=== PATIENT | female | born 2000 | race Caucasian/White ===

== ENCOUNTER 2023-12-16 07:38 | Outpatient (AMB) | payer OTHER, SELFPAY ==
--- NOTE | 2023-12-16 07:41 | A.OFFPC_ITS ---
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 Intake Note: Pt is here today as a New Patient requesting a PE Is last menstrual period known: Yes Last menstrual period: 11/27/23 Allergies No Known Allergies Allergy (Verified 12/16/23 07:44) Medication List - Last Reconciled 12/16/23 by Lynnette Hickman MD No Known Home Meds Tobacco use date assessed: 12/28/23 Dental Screening Dental Screen Date: 12/16/23 Did you have a dental visit in the last 12 months?: Yes Did you have a dental problem in the last 6 months where you did not have access to dental care?: Yes Was dental information given to patient?: 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 PFSH Family History (Updated 12/16/23 @ 08:19 by Lynnette Hickman MD) Maternal Aunt Breast CA, Onset Age: 50 Social History Housing: House Patient Tobacco Use Status: Never used Tobacco e-Cigarette/Vaping Use: Never Used service: No Current occupational status: employed Cognitive needs: No Hearing needs: No Vision needs: Yes Female Reproductive History Menstrual Date of last menstrual period: 11/27/23 Review of Systems Const All systems reviewed & are unremarkable except as noted in HPI and below Reports no additional complaints Eyes Reports no additional complaints ENT Reports no additional complaints Card Reports no additional complaints Resp Reports no additional complaints GI Reports no additional complaints Reports no additional complaints Physical exam (Primary Care) Vital Signs: Last Vital Signs Pulse 81 12/16/23 07:44 BP 100/60 12/16/23 07:44 Pulse Ox 100 12/16/23 07:44 Oxygen Delivery Method Room Air 12/16/23 07:44 BMI result Body Mass Index 22.3 Tobacco/Smoking Status: Tobacco use Status Tobacco use date assessed 12/28/23 12/16/23 07:50 Patient Tobacco Use Status Never used Tobacco 12/16/23 07:50 e-Cigarette/Vaping Use Never Used 12/16/23 07:50 Const General: no acute distress HENMT Head: Yes normal to inspection Ears: hearing grossly normal bilaterally Mouth: Normal oral and palatal mucosa present Throat: Yes posterior oropharynx normal Eyes Pupils: Equal, round and reactive pupils present Neck Neck: Yes no lymphadenopathy and Yes supple Chest Other: slight asymetry in L lower sternocostal joints Resp Effort & Inspection: normal respiratory effort Auscultation: clear to auscultation bilaterally Cardio Rhythm: regular rhythm Heart sounds: S1 normal heart sound present and S2 normal heart sound present GI Inspection: Yes normal to inspection Palpation (GI): Soft to palpation Percussion: Yes normal to percussion Auscultation: normal bowel sounds Neuro Cranial nerves: Yes Equal, round and reactive pupils present Assessment and Plan Assessment & Plan (1) Annual physical exam: Code(s): Z00.00 - Encounter for general adult medical examination without abnormal findings Plan: Well-balanced diet regular physical activity discussed with the patient she declined pelvic exam never been sexually active and blood work. Patient will return for rib x-rays to evaluate for asymmetry in left lower sternocostal joints Orders: Orders XR ribs LT min 3V w CXR1V Today S23.29XA - Dislocation of other parts of thorax, initial encounter Coding Level of Care Code New Pt Prev Care 18-39yr(76442 Diagnoses Annual physical exam Z00.00
[2023-12-16 07:44] VITALS: BP 100/60; PULSE 81; O2SAT 100; BMI 22.3
== END 2023-12-16 08:22 | disposition home or self-care (01) ==
PROVIDERS: PCP Internal Medicine; Visit Provider Internal Medicine
DX: Z00.00 Encounter for general adult medical examination without abnormal findings (principal)

== ENCOUNTER → 2023-12-16 07:38 | Outpatient (BNVA) | payer OTHER, SELFPAY | PROVIDERS: PCP Internal Medicine; Visit Provider Internal Medicine | DX: Z00.00 Encounter for general adult medical examination without abnormal findings (principal) ==

== ENCOUNTER 2024-12-19 08:26 | Outpatient (AMB) | payer OTHER, SELFPAY ==
[2024-12-19 08:31] VITALS: BP 108/66; PULSE 83; RESP 18; TEMP 36.9; O2SAT 98; BMI 21.5
--- NOTE | 2024-12-19 08:31 | MHC.PC.OV ---
Vital Signs 12/19/24 08:31 Height 5 ft 4 in Weight 125 lb BMI 21.5 BP 108/66 Blood Pressure Location Lt brachial Position Sitting Respiration 18 Pulse 83 Pulse Source Pulse Oximeter Temp 98.4 F Temp Source Oral Pulse Oximetry (%) 98 Oxygen Delivery Method Room Air Intake Visit Reasons: Annual PE Intake Note: Pt is here today for PE. Allergies No Known Allergies Allergy (Verified 12/19/24 08:33) Tobacco use date assessed: 12/19/24 Dental Screening Dental Screen Date: 12/19/24 Did you have a dental visit in the last 12 months?: Yes Did you have a dental problem in the last 6 months where you did not have access to dental care?: No Was dental information given to patient?: Patient has dentist HPI Annual PE HPI Details Patient presents for physical PFSH Medical History (Updated 12/19/24 @ 20:17 by Lynnette Hickman MD) Annual physical exam Surgical History (Updated 12/19/24 @ 08:35 by MALLIKA Jacques) No pertinent past surgical history Family History Maternal Aunt Breast CA, Onset Age: 50 Social History Housing: House Patient Tobacco Use Status: Never used Tobacco e-Cigarette/Vaping Use: Never Used service: No Current occupational status: employed Cognitive needs: No Hearing needs: No Vision needs: Yes Questionnaire PHQ-9 Over the last 2 weeks, how often have you been bothered by any of the following problems? 1. Little interest or pleasure in doing things: not at all 2. Feeling down, depressed, or hopeless: not at all 3. Trouble falling or staying asleep, or sleeping too much: not at all 4. Feeling tired or having little energy: several days 5. Poor appetite or overeating: several days 6. Feeling bad about yourself - or that you are a failure or have let yourself or your family down: not at all 7. Trouble concentrating on things, such as reading the newspaper or watching television: not at all 8. Moving or speaking so slowly that other people could have noticed. Or the opposite - being so fidgety or restless that you have been moving around a lot more than usual: not at all 9. Thoughts that you would be better off or of hurting yourself in some way: not at all Total score: 2 Depression Screening Interpretation: Negative Depression Screening Done: Yes 61042 - PHQ-9 Billing: Yes Source: Developed by Drs. Jeffery Franco, Melvi Kim, Arnoldo Lang and colleagues, with an educational candi from [employer]. Thrive Questionnaire Date Thrive assessed: 12/19/24 I am a: Patient What is your living situation today?: I have a steady place to live Within the past 12 months, did the food you bought not last and you didn't have the money to get more?: Never true Within the past 12 months, did you worry whether your food would run out before you got money to buy more?: Never true Do you have trouble paying for medicines?: No Do you have trouble getting transportation to medical appointments?: No Do you have trouble paying your heating and electricity bill?: No Do you have trouble taking care of your child, family member or friend?: No Do you have trouble with day-to-day activities such as bathing, preparing meals, shopping, managing finances, etc.?: No Are you currently unemployed and looking for a job?: No Are you interested in more education?: Yes Please select the resources that you would like help with: None Currently or been in a relationship where the following occur: Controlled Emotionally THRIVE Score: 1 AUDIT C Alcohol Use Questionnaire (AUDIT-C) 1. How often do you have a drink containing alcohol?: Never 3. How often do you have six or more drinks on one occasion?: Never Total Score: 0 ANNEL-7 AMB Questionnaire ANNEL-7 Date ANNEL - 7 assessed: 12/19/24 Feeling nervous, anxious, or on edge: 1 = Several days Not being able to stop or control worryin = Several days Worrying too much about different things: 1 = Several days Trouble relaxin = Several days Being so restless that it is hard to sit still: 0 = Not at all Becoming easily annoyed or irritable: 1 = Several days Feeling afraid as if something awful might happen: 0 = Not at all Total ANNEL-7 score (0-4 normal; 5-9 mild; 10-14 moderate; 15-21 severe): 5 Source: Developed by Drs. Jeffery Franco, Melvi Kim, Arnoldo Lang and colleagues, with an educational candi from [employer]. ANNEL-7 Assessment Billing ANNEL-7 Assessment Tool: ANNEL-7 Assessment 84389 Review of Systems Const All systems reviewed & are unremarkable except as noted in HPI and below Eyes Reports no additional complaints ENT Reports no additional complaints Card Reports no additional complaints Resp Reports no additional complaints GI Reports no additional complaints Reports no additional complaints Musc Reports no additional complaints Physical exam (Primary Care) Vital Signs: Last Vital Signs Temp 98.4 F 12/19/24 08:31 Pulse 83 12/19/24 08:31 Resp 18 12/19/24 08:31 BP 108/66 12/19/24 08:31 Pulse Ox 98 12/19/24 08:31 Oxygen Delivery Method Room Air 12/19/24 08:31 BMI result Body Mass Index 21.5 Tobacco/Smoking Status: Tobacco use Status Tobacco use date assessed 12/19/24 12/19/24 08:37 Patient Tobacco Use Status Never used Tobacco 12/19/24 08:37 e-Cigarette/Vaping Use Never Used 12/19/24 08:31 PHQ-9: PHQ-9 Score PHQ-9: Total score 2 12/19/24 08:37 Depression Screening Interpretation: Negative Thrive Assessment: Date of Thrive Assessment Date Thrive assessed 12/19/24 12/19/24 08:37 Currently or been in a relationship where the following occur: Controlled Emotionally Const General: no acute distress HENMT Head: Yes normal to inspection Face and sinus: Yes normal facial exam Mouth: Normal oral and palatal mucosa present Eyes General: appearance normal, both eyes and all related structures Neck Neck: Yes no lymphadenopathy and Yes supple Resp Effort & Inspection: normal respiratory effort Auscultation: clear to auscultation bilaterally Cardio Rhythm: regular rhythm Heart sounds: S1 normal heart sound present and S2 normal heart sound present GI Inspection: Yes normal to inspection Palpation (GI): Soft to palpation Percussion: Yes normal to percussion Auscultation: normal bowel sounds Coding Level of Care Code Est Pt Prev Care 18-39y(65320) Diagnoses Rib pain on left side R07.81 Annual physical exam Z00.00 Additional Codes ANNEL-7 Assessment Billing - ANNLE-7 Assessment Tool: ANNEL-7 Assessment 76327 ([id number]) PHQ-9 - 16423 - PHQ-9 Billing: Yes ([id number]) Assessment & Plan Assessment & Plan (1) Rib pain on left side: Code(s): R07.81 - Pleurodynia Category: Medical Plan: Chronic left-sided rib pain x-ray will be obtained (2) Annual physical exam: Code(s): Z. - Encounter for general adult medical examination without abnormal findings Category: Medical Plan: Well-balanced diet regular physical activity discussed with the patient she will return for Blood work Orders: Orders XR ribs LT 2V Today R07.81 - Pleurodynia Complete Blood Count Auto Diff Today Z00.00 - Encounter for general adult medical examination without abnormal findings Lipid Panel Today Z00.00 - Encounter for general adult medical examination without abnormal findings TSH reflex Free T4 Today Z00.00 - Encounter for general adult medical examination without abnormal findings Comprehensive [place]. Panel Fast Today Z00.00 - Encounter for general adult medical examination without abnormal findings UA CC w/rflx Micro + Cult Today Z00.00 - Encounter for general adult medical examination without abnormal findings Vitamin D 25-OH Total Today Z00.00 - Encounter for general adult medical examination without abnormal findings
--- OUTSIDE RECORDS SUMMARY | 2024-12-19 09:19 | XMS_ITS | Encounter Summary ---
Author Organization [facility] Address [address] [place] [address] Phone Care Team Providers Care Ice Resurfacing Machine Operators Name Role Phone Jolie Rodriguez VULCANIZER Primary Care Provider U mitchel Encounter Details Date Type Department Care Team (Late st Contact Info) Description 08/14/2017 Conversion Encounter [facility] [address] [address] Social History Tobacco Use Types Packs/Day Years Used Date Smoking Tobacco: Never Assessed Comments Unknown Sex and Gender Information Value Date Recorded Sex Assigned at Not on file Legal Sex Female 6:14 PM EDT Gender Identity Not on file Sexual Orientation Not on file documented as of this encounter Plan of Treatment Not on file documented as of this encounter Visit Diagnoses Not on filedocumented in this encounter Care Teams Ice Resurfacing Machine Operators Relationship Specialty Start Date End Date Jolie Rodriguez NP PCP - General 10/19/18 documented as of this encounter
--- OUTSIDE RECORDS SUMMARY | 2024-12-19 09:19 | XMS_ITS ---
Author Name [facility] Organization Unknown Care Team Organization Name Specialty Phone Email Start Date End Da te [facility] Diana Keith Primary Care 09/30/202211/13
--- OUTSIDE RECORDS SUMMARY | 2024-12-19 09:20 | XMS_ITS | Clinical Summary ---
Author Organization [facility] Address [address] [place] [id number] Phone Care Team Providers Care Program Aide Group Work Name Role Phone Jolie Rodriguez AUTOMATION ENGINEER Primary Care Provider U joseailwoody Allergies No known active allergies Medications No known medications Active Problems Problem Noted Date Diagnosed Date Refused influenza vaccine 03/09/2018 Overview (03/09/2018): 02/2018 Immunizations Immunization Administration Dates Next Due DTaP 02/10/2006, 3,04/13/2001,02/13/2001,12/20/19 01 Hep B, ped/adol 07/13/2001,2000,2000 Hib (PRP-T) 01/22/2002,04/13/2001,02/20/2001 ,2000 IPV 02/10/2006,04/13/2002,02/13/2001 ,2000 MMR 02/10/2006,01/22/2002 No Vaccine Administered 12/27/2016,12/25/2015,,12/12/2013 Pneumococcal Conjugate 04/13/2001,02/06/2001,03/2000 Tdap 09/20/2014 Varicella 02/10/2006,10/30/2001 Family History Medical History Relation Name Comments No Known Problems Brother 1 Demian Scoliosis Brother 2 Malik No Known Problems Father Veniamin No Known Problems Maternal Grandfather Cancer (Adult Onset) Maternal Grandmother No Known Problems Mother Nadegha Breast cancer Mother's Sister Hypertension Paternal Grandfather Hypertension Paternal Grandmother No Known Problems Sister 1 Tata No Known Problems Sister 2 Cheryr Fibrocystic breast disease Sister 3 Jennifer Relation Name Status Comments Brother 1 Demian Alive Brother 2 Malik Alive Father Kavitha Alive Maternal Grandfather (Age 90) Maternal Grandmother Mother Venkata Alive Mother's Sister Mom's twin Paternal Grandfather Paternal Grandmother Sister 1 Tata Alive Sister 2 Cherry Alive Sister 3 Jennifer Alive Social History Tobacco Use Types Packs/Day Years Used Date Smoking Tobacco: Never Tobacco Cessation:Counseling Given: Yes Alcohol Use Standard Drinks/Week Comments No 0 (1 standard drink = 0.6 oz pur e alcohol) Hunger/Food Answer Date Recorded In the last 12 months, did y ou or your family ever eat less than you felt you should because there wasn't enough money for food? No 03/13/2019 Stable Housing Answer Date Recorded Are you worried that in the next 2 months you may not have stable housing? No 03/13/2019 Transportation Concerns Answer Date Rec orded In the last 12 months, have you or your family ever had to go without healthcare because you didn't have a way to get there? No 03/13/2019 Hazards in Home Answer Date Recorded Think about the place you li ve. Do you have problems with any of the following? Pests (mice or roaches), mold, no/not working smoke detectors, water leaks, no window guards. No 2018 Financing Utilities Answer Date Recorde d In the last 12 months, has t he electric, gas, oil, or water company threatened to shut off your services in your home? No 03/13/2019 Safety at Home Answer Date Recorded Are you or your family worried about feeling saf e in your home? No 03/13/2019 Outside Support Answer Date Recorded Do you feel that you need mo re support from other people or programs to help you care for yourself or your family? No 03/13/2019 Understanding Health Concerns Answer Da te Recorded Do you need help understandi ng your or your child's healthcare needs (diagnosis, medications, plan, etc.)? No 03/13/2019 Financing Health Concerns Answer Date R ecorded In the last 12 months, was t here a time when your child needed to see a doctor or get medications or supplies but could not because of cost? No 03/13/2019 Missing School or Work Answer Date Lorne rded Did you or your child miss s chool or work because of a health problem that could have been avoided? No 03/13/2019 Comments No Sex and Gender Information Value Date Recorded Sex Assigned at Not on file Legal Sex Female 6:14 PM EDT Gender Identity Not on file Sexual Orientation Not on file Last Filed Vital Signs Vital Sign Reading Time Taken Comments Blood Pressure 114/62 10/03/2019 1:46 PM EDT Pulse - - Temperature 37.2 C (98.9 F) 10/03/2019 1:46 PM EDT Respiratory Rate - - Oxygen Saturation 99% 06/27/2019 1:25 PM EDT Inhaled Oxygen Concentration - - Weight 62.4 kg (137 lb 9.6 oz) 10/03/2019 1:46 P M EDT Height 160 cm (5' 3 ) 03/13/2019 2:57 PM EST Body Mass Index 24.37 03/13/2019 2:57 PM EST Plan of Treatment Health Maintenance Due Date Last Done Comments HPV Vaccines (1 - 3-dose series) 10/12/2015 DTaP,Tdap,and Td Vaccines (7 - Td or Tdap) 09/20/2024 09/20/2014, 02/10/2006, 04/13/2002, Additional history exists Influenza Vaccines (#1) 2024 COVID-19 Vaccine ( season) 2024 Pneumococcal Vaccine Aged Out 04/13/2001, 02/06/2001, 2000 No longer eligible based on patient's age to complete this topic Hepatitis B Vaccines Completed 07/13/2001, 2000, 2000 HIB Vaccines Completed 01/22/2002, 03/28, 02/20/2001, Additional history exists IPV Vaccines Completed 02/10/2006, 03/28, 02/13/2001, Additional history exists MMR Vaccines Completed 02/10/2006, 01/22/2002 Varicella Vaccines Completed 02/10/2006, 10/30/2001 Hepatitis A Vaccines Aged Out No long er eligible based on patient's age to complete this topic Men B Vaccine Aged Out No longer elig ible based on patient's age to complete this topic Meningococcal Vaccine Aged Out No nahomy jossy eligible based on patient's age to complete this topic Procedures * Due to [place] state law, this organization might not be sharing sensitive test results. Procedure Name Priority Date/Time Associated Diagnosis Comments CHLAMYDIA AND GONORRHEA, AMPLIFIED Routine 03/09/2018 2:54 PM EST Encounter for screening examination for sexually transmitted disease from Last 3 Months or Most Recently Relevant to Health Maintenance Results * Due to [facility] law, this organization might not be sharing sensitive test results. * Chlamydia and Gonorrhoea, Amplified (03/09/2018 2:54 PM EST) Chlamydia Trachomatis, DNA Probe NEGATIVE (NEG) [facility] Comment: No Chlamydia Trachomatis RNA detected in this patient's sample (REFERENCE RANGE/NORMAL VALUE: NOT DETECTED) Note: This test uses assembler filters- mediated amplification method to detect rRNA from C. Trachomatis URINE GC AMP PROBE NEGATIVE (NEG) [facility] Comment: No Neisseria Gonorrhoeae RNA detected in this patient's sample (REFERENCE RANGE/NORMAL VALUE: NOT DETECTED) NOTE: This test uses assembler filters-mediated amplification method to detect rRNA from N.Gonorrhoeae. A negative result does not preclude infection. In the case of a negative urine result, testing of an endocervical(female) or urethral (male) specimen is recommended if there is high clinical suspicion of infection. Due to very high sensitivity of Nucleic Acid Amplification Test, false positive results may occur. Therefore, specimen handling is extremely important. In patients in whom the disease is unlikely, additional sample for testing should be considered after an initial positive result. The performance characteristics of this test have not been evaluated in children. The Aptima Combo2 assay is not intended for the evaluation of suspected sexual abuse or for other medico-legal indications. The ordering provider should assess if the patient had consensual sex without risk of sexual abuse. Consult the [facility] if needed. Contact phone number . Therapeutic failure or success cannot be determined with the Aptima Combo2 assay since nucleic acid may persist following appropriate antimicrobial therapy. The Centers for Disease Control and Prevention (CDC) recommends confirmatory retesting using culture or a different nucleic acid amplification test when positive results occur, if indicated. Testing performed or reported by [facility], a Service of [facility], [facility] [place] [address] CLIA [id number] Ronnie Gilliland MD, Design Painter Urine (Urine) 03/09/2018 2:5 4 PM EST 03/10/2018 12:37 AM EST Isamar Rodriguez MD LAB MICROBIOLOGY - GENERAL O RDERABLES Final Result ALANNA from Last 3 Months or Most Recently Relevant to Health Maintenance Insurance [employer] [facility] [employer] [facility]ALTH[facility]ARE [facility] Care Teams Program Aide Group Work Relationship Specialty Start Date End Date Jolie Rodriguez NP PCP - General 10/19/18
== END 2024-12-19 09:00 | disposition home or self-care (01) ==
LOC: HO.HMCC 08:27
PROVIDERS: PCP Internal Medicine; Visit Provider Internal Medicine
DX: R07.81 Pleurodynia (principal); Z00.00 Encounter for general adult medical examination without abnormal findings

== ENCOUNTER → 2024-12-19 08:26 | Outpatient (BNVA) | payer OTHER, SELFPAY | PROVIDERS: PCP Internal Medicine; Visit Provider Internal Medicine | DX: Z00.00 Encounter for general adult medical examination without abnormal findings (principal); R07.81 Pleurodynia | CPT/HCPCS: 96127 ==

== ENCOUNTER 2025-01-12 07:19 | Outpatient (REF) | payer OTHER, SELFPAY ==
--- NOTE | ~2025-01-12 | XR_ITS ---
EXAMINATION: XR RIBS, LEFT CLINICAL INFORMATION: R07.81 - Pleurodynia COMPARISON: None available. TECHNIQUE: Oblique views, left hemithorax. FINDINGS: No acute cortical disruption within the ribs of the left hemithorax. No acute airspace disease, left lung. S-shaped curvature of the thoracolumbar spine. Probable 1 mm round skin marker overlapping the medial aspect of the left lower hemithorax.. XR/XR ribs LT 2V IMPRESSION: No acute rib fracture, left hemithorax. Electronically signed by: Rolando Reese MD 01/14/2025 08:21 AM EDT
--- OUTSIDE RECORDS SUMMARY | 2025-01-12 07:23 | XMS_ITS | Clinical Summary ---
Author Organization [facility] Address [address] [place] [phone] Phone Care Team Providers Care Hand Mixer Name Role Phone Jolie Rodriguez NP Primary Care Provider U joseailwoody Allergies No [...] 1 Tata No Known Problems Sister 2 Cherry Fibrocystic breast disease Sister 3 Jennifer Relation [...] exists Influenza Vaccines (#1) 2024 COVID-19 Vaccine (2024- season) 2024 Pneumococcal Vaccine Aged Out 04/13/2001, [...] complete this topic Procedures * Due to [place] state law, this organization might not be sharing sensitive test results. Procedure Name Priority Date/Time Associated Diagnosis Comments CHLAMYDIA AND GONORRHEA, AMPLIFIED Routine 03/09/2018 2:54 PM EST Encounter for screening examination for sexually transmitted disease from Last 3 Months or Most Recently Relevant to Health Maintenance Results * Due to [facility] law, this organization might not be sharing sensitive test results. * Chlamydia and Gonorrhoea, Amplified (03/09/2018 2:54 PM EST) Chlamydia Trachomatis, DNA Probe NEGATIVE (NEG) [facility] Comment: No Chlamydia Trachomatis RNA detected in this patient's sample (REFERENCE RANGE/NORMAL VALUE: NOT DETECTED) Note: This test uses mink farmer- mediated amplification method to detect rRNA from C. Trachomatis URINE GC AMP PROBE NEGATIVE (NEG) [facility] Comment: No Neisseria Gonorrhoeae RNA detected in this patient's sample (REFERENCE RANGE/NORMAL VALUE: NOT DETECTED) NOTE: This test uses mink farmer-mediated amplification method to detect rRNA from N.Gonorrhoeae. [...] without risk of sexual abuse. Consult the [facility] if needed. Contact phone number . Therapeutic failure or success cannot be determined with the Aptima Combo2 assay since nucleic acid may persist following appropriate antimicrobial therapy. The Centers for Disease Control and Prevention (CDC) recommends confirmatory retesting using culture or a different nucleic acid amplification test when positive results occur, if indicated. Testing performed or reported by [facility], a Service of [facility], [facility] [place] [address] CLIA [id number] Ronnie Gilliland MD, Brick Veneer Maker Urine (Urine) 03/09/2018 2:5 4 PM EST 03/10/2018 12:37 AM EST Isamar Rodriguez MD LAB MICROBIOLOGY - GENERAL O RDERABLES Final Result ALANNA from Last 3 Months or Most Recently Relevant to Health Maintenance Insurance [employer] [facility] [facility] [employer] [facility]CARE [facility] Care Teams Hand Mixer Relationship Specialty Start Date End Date Jolie Rodriguez NP PCP - General 10/19/18
--- OUTSIDE RECORDS SUMMARY | 2025-01-12 07:23 | XMS_ITS | Encounter Summary ---
Author Organization [facility] Address [address] [place] [address] Phone Care Team Providers Care Extrusion Manager Name Role Phone Jolie Rodriguez SENIOR CATEGORY MANAGER Primary Care Provider [place] Encounter Details Date Type Department Care Team (Late st Contact Info) Description 08/14/2017 Conversion Encounter [facility] [address] [address] Social History Tobacco Use Types Packs/Day Years [...] on filedocumented in this encounter Care Teams Extrusion Manager Relationship Specialty Start Date End Date Jolie Rodriguez NP PCP - General 10/19/18 documented as of this encounter
[2025-01-12 08:00] LABS: MANUAL DIFF FLAG NO
[2025-01-12 09:25] LABS: Hematocrit 39.9 % (37.0-47.0); Hemoglobin 13.4 g/dl (12.0-16.0); Imm Gran Abs Auto 0.02 X10*3/uL (0.00-0.03); Imm Gran Pct Auto 0.3 % (0.0-0.4); Lymphocytes Absolute Auto 1.2 X10*3/uL (1.2-4.9); Mean Corpuscular HGB Conc 33.6 g/dl (31.0-35.0); Mean Corpuscular Hemoglobin 29.5 pg (27.0-33.0); Mean Corpuscular Volume 87.7 fL (80.0-98.0); NRBC Abs Auto 0.000 X10*3/uL (0.0-0.012); NRBC Pct Auto 0.0 /100WBC (0.0-0.2); Platelet Count 253 X10*3/uL (160-400); Red Blood Count 4.55 X10*6/uL (4.20-5.50); White Blood Count 6.4 X10*3/uL (4.8-10.8)
[2025-01-12 09:36] LABS: Appearance Urine Clear; Glucose Urine UA Negative (Negative); PH 7.0 (5.0-9.0); Specific Gravity - Urine 1.020 (1.005-1.025)
[2025-01-12 11:01] LABS: Alanine Aminotransferase 21 U/L (0-31); Albumin Level 4.7 g/dL (3.5-5.0); Alkaline Phosphatase 58 U/L (39-117); Anion Gap 15 (12-20); Aspartate Amino Transferase 18 U/L (5-31); Blood Urea Nitrogen 13 mg/dL (9-16); Calcium 9.2 mg/dL (8.4-10.2); Carbon Dioxide 22 mmol/L (22-29); Chloride 106 mmol/L (96-108); Cholesterol 188 mg/dL (<200); Estimated Glomerular Filt Rate > 60; HDL Cholesterol 64 mg/dL (>40); Potassium 4.4 mmol/L (3.3-5.1); Sodium 139 mmol/L (135-145); Total Protein 6.9 g/dL (6.5-8.0); Triglycerides 67 mg/dL (<150)
== END 2025-01-12 07:20 | disposition home or self-care (01) ==
LOC: HO.LAB 07:19
PROVIDERS: PCP Internal Medicine; Visit Provider Internal Medicine
DX: Z00.00 Encounter for general adult medical examination without abnormal findings (principal); R07.81 Pleurodynia; Z13.29 Encounter for screening for other suspected endocrine disorder; Z13.6 Encounter for screening for cardiovascular disorders; Z13.21 Encounter for screening for nutritional disorder
CPT/HCPCS: 36415; 71100; 80053; 80061; 81003; 82306; 84443; 85025

== ENCOUNTER → 2025-01-12 08:08 | Outpatient (BNV) | payer OTHER, SELFPAY | PROVIDERS: PCP Internal Medicine; Visit Provider Radiology Diagnostic Radiology | DX: R07.81 Pleurodynia (principal) | CPT/HCPCS: 71100 ==